=== PATIENT | male | born 1950 | race Caucasian/White ===

== ENCOUNTER 2016-09-01 21:14 | Emergency (ER) | payer MEDICARE ==
[~2016-09-01 21:14] MED LIST: ABILIFY PO; ABILIFY10 MG PO; ABILIFY5 MG PO; ALAVERT10 M1 PO; ALBUTEROL17 GM INH; AMOXICILLIN500 M1; ASPIRIN PO; ASPIRIN81 M1 PO; ASPIRIN81 M2 PO; ATORVASTATIN CA10 MG PO; AUGMENTIN875 MG PO; BENADRYL25 M1 PO; CENTRUM PO; COREG PO; CYANOCOBAL1000 MCG/1 INJ; DULERA 100 MCG/13 GM INH; ELIMITE60 GM TOP; ESOMEPRAZOLE MA40 MG; ETODOLAC PO; ETODOLAC500 MG PO; FLEXERIL10 MG PO; FLUOXETINE HCL20 M1 PO; FLUOXETINE PO; GABAPENTIN PO; GABAPENTIN300 MG PO; GABAPENTIN600 MG PO; HYDROCHLOROTHIAZIDE PO; HYDROCODONE/APA1 T16 PO; IBUPROFEN800 MG PO; LORTAB 7.5-5001 TAB PO; MELOXICAM15 MG PO; MOBIC15 MG PO; NEURONTIN PO; NEURONTIN100 MG PO; NORCO 10/3251 TAB PO; OMEPRAZOLE20 M2 PO; OXECTA7.5 MG PO; PERCOCET 51 UDTAB 5/ PO; POTASSIUM; PRAVACHOL20 MG PO; PREDNISONE; PREDNISONE PO; PRILOSEC20 MG PO; PROZAC PO; PROZAC40 MG DOB; TYLENOL #3 PO; VITAMIN D1000 UNI2 PO; VOLTAREN75 MG PO; ZITHROMAX PO; ZYPREXA PO
== END 2016-09-01 22:07 | disposition home or self-care (01) ==
LOC: SED 21:14
DX: R06.02 Shortness of breath (principal); R09.81 Nasal congestion; R05 Cough; Z79.899 Other long term (current) drug therapy
CPT/HCPCS: 99283